=== PATIENT | male | born 1975 | race Caucasian/White ===

== ENCOUNTER 2023-08-11 23:05 | Emergency (ER) | payer SELFPAY ==
[~2023-08-11] VITALS: Ht 165.1 cm; Wt 54.5 kg
[~2023-08-11 23:05] MED LIST: NO HOME MEDICATIONS
[2023-08-11 23:11] VITALS: TEMP 97.9
[2023-08-12 01:23] VITALS: BP 127/81; PULSE 97
[2023-08-12] MEDS ORDERED: PREDNISONE20 MG PO (01:31)
[2023-08-12] MEDS ORDERED: ZITHROMAX 250M250 MG PO (01:31)
== END 2023-08-12 01:26 | disposition home or self-care (01) ==
LOC: COL.ER 23:05
DX: J20.9 Acute bronchitis, unspecified (principal); F17.210 Nicotine dependence, cigarettes, uncomplicated
CPT/HCPCS: J7512